=== PATIENT | female | born 1995 | race Caucasian/White ===

== ENCOUNTER 2018-09-13 13:21 | Outpatient (CLI) | payer OTHER ==
[~2018-09-13] VITALS: Ht 172.7 cm; Wt 76.3 kg
[~2018-09-13 13:21] MED LIST: No meds per pt.
[2018-09-13 13:57] VITALS: BP 109/64
[2018-09-13 14:13] LABS: MICROSCOPIC INDICATED
[2018-09-13] MEDS ORDERED: NITR100C56 PO (14:40)
[2018-09-13] MEDS ORDERED: ACET-76 PO (14:40)
[2018-09-13] MEDS ORDERED: PREN1TAB10 PO (14:40)
== END 2018-09-13 15:43 | disposition home or self-care (01) ==
LOC: LDOP 13:21
PROVIDERS: ATTEND Obstetrics & Gynecology
DX: O26.893 Other specified pregnancy related conditions, third trimester (principal); Z3A.37 37 weeks gestation of pregnancy
CPT/HCPCS: 59025; 81001; 87086; 99201; G0463